=== PATIENT | male | born 1950 | race Caucasian/White ===

== ENCOUNTER → 2024-12-25 13:41 | Outpatient (BNVA) | payer OTHER, SELFPAY | PROVIDERS: Visit Provider Registered Nurse | DX: S40.871A Other superficial bite of right upper arm, initial encounter (principal); W54.0XXA Bitten by dog, initial encounter; Z86.39 Personal history of other endocrine, nutritional and metabolic disease; Z23 Encounter for immunization; Z02.79 Encounter for issue of other medical certificate | CPT/HCPCS: 90715; 99202 ==

== ENCOUNTER → 2024-12-27 13:17 | Outpatient (BNVA) | payer OTHER, SELFPAY | PROVIDERS: Visit Provider Physician Assistant | DX: S40.871A Other superficial bite of right upper arm, initial encounter (principal); W54.0XXA Bitten by dog, initial encounter; Z86.39 Personal history of other endocrine, nutritional and metabolic disease; Z02.79 Encounter for issue of other medical certificate | CPT/HCPCS: 99213 ==